=== PATIENT | male | born 1980 | race Caucasian/White ===

== ENCOUNTER 2017-05-30 08:42 | Emergency (ER) | payer MEDICAID ==
[~2017-05-30] VITALS: Ht 177.8 cm; Wt 80.8 kg
[2017-05-30 08:43] VITALS: BP 144/92
[2017-05-30] MEDS ORDERED: KETOROLAC 30 MG/1 ML IVPush ONE (09:00)
[2017-05-30] MEDS ORDERED: KETOROLAC 30 MG/1 ML ONE (09:19)
== END 2017-05-30 10:42 | disposition home or self-care (01) ==
LOC: ED 09:56
DX: S76.912A Strain of unspecified muscles, fascia and tendons at thigh level, left thigh, initial encounter (principal); X58.XXXA Exposure to other specified factors, initial encounter; Y93.89 Activity, other specified; Y92.89 Other specified places as the place of occurrence of the external cause; Y99.9 Unspecified external cause status; F17.210 Nicotine dependence, cigarettes, uncomplicated
CPT/HCPCS: 73552; 96374; 99284; J1885